=== PATIENT | male | born 1985 | race Caucasian/White ===

== ENCOUNTER 2019-10-03 11:55 | Day surgery (SDC) | payer OTHER ==
[~2019-10-03 11:55] MED LIST: ALBU90OI INH; Bactrim Ds Tab1 EACH PO; CEPH500 PO; DIPH50 PO; DOXY100 PO; HYDACE5 PO; IBUP600 PO; Keflex500 MG PO; NAPR500 PO; OXYACE5T PO; PENVK250 PO; PENVK500 PO; PRED20 PO; PROM25 PO; Percocet 5-3251 EACH PO; SILSUL1TC TOP
--- NOTE | 2019-10-03 15:30 | NUR ---
10/03/19 1530 JONATHAN CRUZ PATIENT MOVED TO STEP DOWN AND ASSISTED INTO RECLINER. RIGHT FOOT ELEVATED ON TWO PILLOWS WITH ICE PACK BEHIND KNEE. VSS BUT PATIENT DENIES ANY IMPROVEMENT IN PAIN WITH 2 MG VERSED AND 100 MCG IV FENTANYL GIVEN OF 1529.
== END 2019-10-03 16:23 | disposition home or self-care (01) ==
LOC: ORSCSDS 11:55
PROVIDERS: Podiatrist Foot & Ankle Surgery
PROC: 0SGH04Z Fusion of Right Tarsal Joint with Internal Fixation Device, Open Approach (ICD-10-PCS; principal; 2019-10-03 13:00)
DX: S92.011A Displaced fracture of body of right calcaneus, initial encounter for closed fracture (principal); F17.210 Nicotine dependence, cigarettes, uncomplicated
CPT/HCPCS: C1713; J0171; J0690; J1100; J2250; J2405; J2704; J3010; J7120

== ENCOUNTER 2020-08-08 18:47 | Inpatient (IN) | payer OTHER ==
[~2020-08-08] VITALS: Ht 177.8 cm; Wt 88.0 kg
[2020-08-08 19:42] LABS: BASOPHILS ABSOLUTE AUTO 0.07 K/mm3 (0.00-0.23); BASOPHILS PERCENT AUTO 1 % (0-2); EOSINOPHILS ABSOLUTE AUTO 0.14 K/mm3 (0.00-0.68); EOSINOPHILS PERCENT AUTO 1 % (0-6); Hematocrit 41.4 % (37.0-53.0); Hemoglobin 14.2 g/dL (13.5-17.5); IMMATURE GRAN ABSOLUTE AUTO 0.05 K/mm3 (0.00-0.10); IMMATURE GRAN PERCENT AUTO 0 % (0-1); LYMPHOCYTES ABSOLUTE AUTO 2.29 K/mm3 (0.84-5.20); LYMPHOCYTES PERCENT AUTO 16 % (21-46); MONOCYTES ABSOLUTE AUTO 0.83 K/mm3 (0.16-1.47); MONOCYTES PERCENT AUTO 6 % (4-13); Mean Corpuscular HGB 31.1 pg (26.0-34.0); Mean Corpuscular HGB Conc 34.3 g/dL (31.5-36.5); Mean Corpuscular Volume 91 fL (80-100); Mean Platelet Volume 9.9 fL (9.1-12.4); NEUTROPHILS ABSOLUTE AUTO 10.65 K/mm3 (1.96-9.15); NEUTROPHILS PERCENT AUTO 76 % (41-73); Platelet Count 183 K/mm3 (150-400); RDW Coefficient Variation 13.1 % (11.7-14.2); RDW Standard Deviation 43.1 fL (35.1-46.3); Red Blood Cell Count 4.57 M/mm3 (4.30-5.90); White Blood Cell Count 14.03 K/mm3 (4.00-11.30)
[2020-08-08 20:05] LABS: Alanine Aminotransfer (ALT/SGP 27 U/L (12-78); Albumin, Blood 3.6 g/dL (3.4-5.0); Albumin/Globulin Ratio 0.9 (0.8-1.8); Alk Phos 92 U/L (50-136); Anion Gap 4 mmol/L (6-16); Aspartate Aminotrans (AST/SGOT 27 U/L (12-37); Bilirubin, Total 0.4 mg/dL (0.1-1.0); Blood Urea Nitrogen 7 mg/dL (8-24); Bun/Creatinine Ratio 8.9 (12.0-20.0); CO2, Blood 29 mmol/L (21-32); Calcium, Blood 8.2 mg/dL (8.5-10.1); Chloride, Blood 104 mmol/L (98-108); Creatinine, Blood 0.78 mg/dL (0.60-1.20); Globulin, Blood 3.9 g/dL (2.2-4.0); Glomerular Filtration Rate >60 (60-); Glucose, Blood 100 mg/dL (70-99); Potassium, Blood 3.8 mmol/L (3.5-5.5); Sodium, Blood 137 mmol/L (136-145); Total Protein, Blood 7.5 g/dL (6.4-8.2)
[2020-08-08 23:47] LABS: International Normalized Ratio 0.93
--- NOTE | 2020-08-09 01:43 | NUR ---
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 PT had rt knee tapped in ER & has vanco running. Await admission.
--- NOTE | 2020-08-09 02:47 | NUR ---
35 year old admitted with rt knee celluitis, DR Wilkins see's PT. Makes NPO for ortho consult. TDAP rx, nicotine patch for tobacco dependance. PT says hx of swelling rt knee with fluid on the knee but not previous rt knee infection. No current home meds except ibuprofen 800 mg for rt knee pain. Reports daily smoker 1 ppd daily etoh around 3 beers & daily marijauna.
--- NOTE | 2020-08-09 03:08 | NUR ---
Called consult to [facility], DR Chayo Thapa will be on in AM for consult. Exchange notified of consult requst for possible septic arthritis.
[2020-08-09 04:41] LABS: BASOPHILS ABSOLUTE AUTO 0.06 K/mm3 (0.00-0.23); BASOPHILS PERCENT AUTO 1 % (0-2); EOSINOPHILS ABSOLUTE AUTO 0.11 K/mm3 (0.00-0.68); EOSINOPHILS PERCENT AUTO 1 % (0-6); Hemoglobin 12.7 g/dL (13.5-17.5); IMMATURE GRAN ABSOLUTE AUTO 0.04 K/mm3 (0.00-0.10); IMMATURE GRAN PERCENT AUTO 0 % (0-1); LYMPHOCYTES ABSOLUTE AUTO 3.75 K/mm3 (0.84-5.20); LYMPHOCYTES PERCENT AUTO 31 % (21-46); MONOCYTES ABSOLUTE AUTO 1.01 K/mm3 (0.16-1.47); MONOCYTES PERCENT AUTO 8 % (4-13); Mean Corpuscular HGB 30.9 pg (26.0-34.0); Mean Corpuscular HGB Conc 33.4 g/dL (31.5-36.5); Mean Corpuscular Volume 93 fL (80-100); Mean Platelet Volume 10.3 fL (9.1-12.4); NEUTROPHILS ABSOLUTE AUTO 7.21 K/mm3 (1.96-9.15); NEUTROPHILS PERCENT AUTO 59 % (41-73); Platelet Count 162 K/mm3 (150-400); RDW Coefficient Variation 13.3 % (11.7-14.2); RDW Standard Deviation 45.3 fL (35.1-46.3); Red Blood Cell Count 4.11 M/mm3 (4.30-5.90); White Blood Cell Count 12.18 K/mm3 (4.00-11.30)
[2020-08-09 05:00] LABS: Alanine Aminotransfer (ALT/SGP 23 U/L (12-78); Albumin, Blood 3.1 g/dL (3.4-5.0); Albumin/Globulin Ratio 0.9 (0.8-1.8); Alk Phos 72 U/L (50-136); Anion Gap 3 mmol/L (6-16); Aspartate Aminotrans (AST/SGOT 23 U/L (12-37); Bilirubin, Total 0.6 mg/dL (0.1-1.0); Blood Urea Nitrogen 8 mg/dL (8-24); Bun/Creatinine Ratio 10.7 (12.0-20.0); CO2, Blood 27 mmol/L (21-32); Chloride, Blood 109 mmol/L (98-108); Creatinine, Blood 0.75 mg/dL (0.60-1.20); Globulin, Blood 3.5 g/dL (2.2-4.0); Glomerular Filtration Rate >60 (60-); Glucose, Blood 95 mg/dL (70-99); Potassium, Blood 4.3 mmol/L (3.5-5.5); Sodium, Blood 139 mmol/L (136-145); Total Protein, Blood 6.6 g/dL (6.4-8.2)
--- NOTE | 2020-08-09 10:20 | NUR ---
DR CARL AT BEDSIDE. PATIENT WANTING TO LEAVE AMA. DISCUSSED RISKS OF LEAVING INCLUDING WORSENING INFECTION AND . PATIENT REFUSED TO SIGN AMA FORM. FORM VERIFIED AND SIGNED BY 2 RN'S. IV PULLED PRIOR TO LEAVING.
== END 2020-08-09 10:21 | disposition left against medical advice (07) | DRG 549 ==
LOC: ER 18:47 → MEDS 08-09 01:06 → ERHOLD 08-09 01:06 → MEDS 08-09 01:45
PROVIDERS: Emergency Medicine; Physician Assistant; ADMIT Internal Medicine
PROC: 0S9C3ZZ Drainage of Right Knee Joint, Percutaneous Approach (ICD-10-PCS; principal; 2020-08-09)
PROC: 3E0234Z Introduction of Serum, Toxoid and Vaccine into Muscle, Percutaneous Approach (ICD-10-PCS; 2020-08-09)
PROC: 3E02340 Introduction of Influenza Vaccine into Muscle, Percutaneous Approach (ICD-10-PCS; 2020-08-09)
DX: M00.9 Pyogenic arthritis, unspecified (principal); L03.115 Cellulitis of right lower limb; F17.210 Nicotine dependence, cigarettes, uncomplicated; R45.1 Restlessness and agitation; Z53.29 Procedure and treatment not carried out because of patient's decision for other reasons; Z23 Encounter for immunization; Z88.5 Allergy status to narcotic agent
CPT/HCPCS: 36415; 73562-RT; 80053; 83605; 83735; 84145; 85025; 85610; 85651; 86140; 87040; 93005; 93010; 96361; 96365; 96375; 99284-25; J0696; J1170; J1885; J2405; J2930; J3370; J7030; J7050; J7120; Q2038

== ENCOUNTER 2023-05-06 17:12 | Emergency (ER) | payer OTHER ==
[~2023-05-06] VITALS: Ht 180.3 cm; Wt 81.7 kg
[2023-05-06 17:46] LABS: BASOPHILS ABSOLUTE AUTO 0.06 K/mm3 (0.00-0.23); BASOPHILS PERCENT AUTO 1 % (0-2); EOSINOPHILS ABSOLUTE AUTO 0.08 K/mm3 (0.00-0.68); EOSINOPHILS PERCENT AUTO 1 % (0-6); Hematocrit 47.2 % (37.0-53.0); Hemoglobin 16.4 g/dL (13.5-17.5); IMMATURE GRAN ABSOLUTE AUTO 0.04 K/mm3 (0.00-0.10); IMMATURE GRAN PERCENT AUTO 1 % (0-1); LYMPHOCYTES ABSOLUTE AUTO 2.56 K/mm3 (0.84-5.20); LYMPHOCYTES PERCENT AUTO 36 % (21-46); MONOCYTES ABSOLUTE AUTO 0.65 K/mm3 (0.16-1.47); MONOCYTES PERCENT AUTO 9 % (4-13); Mean Corpuscular HGB 31.4 pg (26.0-34.0); Mean Corpuscular HGB Conc 34.7 g/dL (31.5-36.5); Mean Corpuscular Volume 90 fL (80-100); Mean Platelet Volume 10.1 fL (9.1-12.4); NEUTROPHILS ABSOLUTE AUTO 3.64 K/mm3 (1.96-9.15); NEUTROPHILS PERCENT AUTO 52 % (41-73); Platelet Count 187 K/mm3 (150-400); RDW Coefficient Variation 12.4 % (11.7-14.2); RDW Standard Deviation 41.1 fL (35.1-46.3); Red Blood Cell Count 5.23 M/mm3 (4.30-5.90); White Blood Cell Count 7.03 K/mm3 (4.00-11.30)
[2023-05-06 18:09] LABS: Albumin, Blood 3.8 g/dL (3.4-5.0); Bilirubin, Total 0.5 mg/dL (0.1-1.0); Bun/Creatinine Ratio 12.1 (12.0-20.0); Calcium, Blood 8.6 mg/dL (8.5-10.1); Creatinine, Blood 0.83 mg/dL (0.60-1.20); Globulin, Blood 3.9 g/dL (2.2-4.0); Potassium, Blood 4.8 mmol/L (3.5-5.5); Total Protein, Blood 7.7 g/dL (6.4-8.2)
[2023-05-06 21:00] VITALS: BP 125/86
[2023-05-06] MEDS ORDERED: ONDA4ODT MM (21:01)
[2023-05-06] MEDS ORDERED: PEPTO-BISMOL U525 MG PO (21:01)
== END 2023-05-06 21:15 | disposition home or self-care (01) ==
LOC: ER 17:12
PROVIDERS: Physician Assistant
DX: R10.13 Epigastric pain (principal); R11.2 Nausea with vomiting, unspecified; E86.0 Dehydration; F17.210 Nicotine dependence, cigarettes, uncomplicated; K64.9 Unspecified hemorrhoids; Z88.5 Allergy status to narcotic agent
CPT/HCPCS: 74177; 80053; 83690; 85025; 96374-59; 99284-25; A9270; J2405; J7030; Q9967

== ENCOUNTER 2024-01-19 14:36 | Emergency (ER) | payer OTHER ==
[~2024-01-19] VITALS: Ht 177.8 cm; Wt 83.9 kg
[~2024-01-19 14:36] MED LIST changes: +ONDA4ODT MM; +PEPTO-BISMOL U525 MG PO
[2024-01-19 17:03] VITALS: BP 166/97
== END 2024-01-19 17:00 | disposition home or self-care (01) ==
LOC: ER 14:36
DX: S29.012A Strain of muscle and tendon of back wall of thorax, initial encounter (principal); S80.10XA Contusion of unspecified lower leg, initial encounter; F17.210 Nicotine dependence, cigarettes, uncomplicated; V13.4XXA Pedal cycle driver injured in collision with car, pick-up truck or van in traffic accident, initial encounter; Z88.5 Allergy status to narcotic agent
CPT/HCPCS: 71045; 99284-25